=== PATIENT | female | born 1935 | race African-American/Black ===

== ENCOUNTER 2016-07-02 12:37 | Inpatient (IN) ==
[2016-07-02 13:20] LABS: MANUAL DIFF NEEDED? NO
[2016-07-02 13:23] LABS: BASO% 0.1 % (0.0-0.8); EOS% 0.9 % (0.0-10.0); HEMATOCRIT 37.9 % (37.0-47.0); HEMOGLOBIN 13.1 g/dL (12.0-16.0); LYMPH# 1.25 X1000 (1.2-3.4); LYMPH% 11.6 % (20.5-51.1); MCH 29.7 PG (27-31); MCHC 34.6 g/dL (33-37); MCV 85.9 FL (81-99); MONO# 0.46 X1000 (0.11-0.59); MONO% 4.3 % (1.7-9.3); MPV 10.1 FL (7.4-10.4); NEUT% 83.1 % (42.2-75.2); PLT 238 X1000 (130-400); RBC 4.41 XMIL (4.2-5.4)
[2016-07-02 13:23] LABS: URINE CULTURE NEEDED? NO; URINE MICRO REVIEW NEEDED? NO; URINE SOURCE CLEAN CATCH
[2016-07-02 13:26] LABS: BILIRUBIN URINE NEGATIVE (NEGATIVE); BLOOD URINE NEGATIVE (NEGATIVE); COLOR YELLOW; GLUCOSE URINE NEGATIVE (NEGATIVE); LEUKOCYTES URINE NEGATIVE (NEGATIVE); NITRITE URINE NEGATIVE (NEGATIVE); PROTEIN URINE TRACE mg/dL (NEGATIVE); SP GRAVITY URINE 1.014; TURBIDITY URINE CLEAR (CLEAR); UR EPITHELIAL CELLS <10 /HPF (<10); URINE BACTERIA NEGATIVE /HPF; URINE RBC <10 /HPF (<10); URINE WBC <10 /HPF (<10); UROBILINOGEN URINE NORMAL (NORMAL)
[2016-07-02 13:38] LABS: AGAP 13; ALBUMIN 3.8 g/dL (3.5-5.0); ALKALINE PHOSPHATASE 83 U/L (32-104); AMYLASE 54 U/L (20-200); BUN 15 mg/dL (8-22); CHLORIDE 99 mmol/L (98-107); COSMO 279; GOT 13 U/L (10-30); GPT 5 U/L (10-36); LIPASE 20 U/L (13-60); POTASSIUM 3.5 mmol/L (3.5-5.1); SODIUM 137 mmol/L (136-145); TCO2 25 mmol/L (25-35); TOTAL BILIRUBIN 0.66 mg/dL (0.20-1.00); TOTAL PROTEIN 8.1 g/dL (6.3-8.3)
[2016-07-02] MEDS ORDERED: ZOFRAN IV ONE (14:56)
[2016-07-02] MEDS ORDERED: NS 1,000 ML IV ONE (14:56)
--- NOTE | 2016-07-02 16:47 | Diag Imaging Result Doc PS360 ---
EXAM: FLAT/UPRIGHT ABD/1 VIEW CHEST - 07/02/2016 HISTORY: Abd pain TECHNIQUE: Supine and upright abdomen and one view chest COMPARISON: One view chest 04/24/2016 and abdominal series of 06/19/2013 FINDINGS: There is gaseous small bowel distention at the right lower quadrant. There is a moderate amount retained fecal debris in the colon. There are air-fluid levels in the right lower quadrant on the upright view. There is no obvious free air. Upright chest shows normal heart size. There is stable tortuosity of the thoracic aorta. 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 There is no consolidation, pleural effusion, or pneumothorax identified. IMPRESSION: Gaseous small bowel distention at right lower quadrant. Apparent constipation. Correlation with results of subsequent CT scan is recommended. No evidence of acute cardiopulmonary disease. Electronically signed by Barry Sifuentes 07/02/2016 4:45 PM
--- NOTE | 2016-07-02 17:08 | Diag Imaging Result Doc PS360 ---
EXAM: CT ABD/PELVIS W/ IV CONT ONLY - 07/02/2016 HISTORY: Abd pain w/o h/o extensive abd surgeries TECHNIQUE: With intravenous contrast only per request the referring provider. Dose reduction protocol. COMPARISON: Without contrast CT colography of 08/18/2012 FINDINGS: There is been development of a lower anterior abdominal wall hernia at the midline to the right of midline. There is extension of small bowel into the hernia. There is small bowel wall thickening in and near the hernia which may relate to enteritis. There is distention of small bowel, primarily with fluid, in the hernia and in the midline lower abdomen and mid right abdomen. The small bowel distention may relate to acute obstruction from a hernia, enteritis, or possibly nonvisualized adhesion at or near the hernia. There is no abscess identified. There is no free air identified. There is a small broad-based anterior abdominal wall hernia at the midline midabdomen. There is bulging of the anterior margin of the mid transverse colon into this hernia but there is no extension of small bowel into this hernia, this hernia does not obstruct the colon. There are no substantial analysis of the liver, spleen, adrenal glands, or pancreas identified. The history sheet states there is been previous gallbladder surgery but the gallbladder appears be present and is unremarkable. There are small bilateral renal cysts. There is no hydronephrosis. There is no adenopathy identified. IMPRESSION: Lower anterior abdominal wall hernia at the midline and to the right of midline which contains small bowel. Small bowel wall thickening in the vicinity of the hernia which may relate to focal enteritis. Distention of small bowel in the hernia and proximal to the hernia which is suspicious for acute small bowel obstruction. The small bowel obstruction may relate to incarceration of small bowel in the hernia. Other considerations may include focal enteritis and nonvisualized adhesion in the vicinity of a hernia. The possibility of small bowel strangulation at the hernia cannot be entirely excluded. No abscess. No free air. Electronically signed by Barry Sifuentes 07/02/2016 5:05 PM
--- NOTE | 2016-07-02 17:22 | PROVIDER DOCUMENTATION ---
This chart was entered by Sharee Olivera Scribe, acting as scribe for Inga Donald MD. HPI-Abdominal Pain/GI Problem - General Chief Complaint: Abdominal Pain Stated Complaint: nausea/abd pain Time Seen by Provider: 07/02/16 14:36 Allergies/Adverse Reactions: Patient Allergies Allergy/AdvReac Type Severity Reaction Status Date / Time No Known Allergies Allergy Verified 07/02/16 15:40 Home Medications: Home Medication List Medication Instructions Recorded Confirmed Last Taken Type Amlodipine [Norvasc] 10 mg PO DAILY 08/27/12 07/02/16 09/14/14 05:00 History Losartan/Hydrochlorothiazide 1 each PO DAILY 08/27/12 07/02/16 09/14/14 05:00 History [Hyzaar 100/25 Tablet] Omeprazole 40 mg PO DAILY 08/27/12 07/02/16 09/13/14 08:00 History Potassium Chloride [Klor-Con 10] 10 meq PO DAILY 08/27/12 07/02/16 09/13/14 18: 00 History Loratadine [Claritin] 10 mg PO QHS #30 tablet 02/07/16 07/02/16 Unknown Rx Spironolactone [Aldactone] 25 mg PO DAILY #30 tablet 02/07/16 07/02/16 Unknown Rx Glipizide [Glucotrol] 5 mg PO DAILY 07/02/16 07/02/16 Unknown History - History of Present Illness-ABD Nature of Presenting Problems: pt is a 81 yof who came to the ED with a cc of RLQ pain. Pt reports her abdomen hurts her once a month, pt is afraid of having another hernia. Pt reports her abdominal pain is causing N/V. denies fever, chills, and chest pain. Abdominal Pain Onset Location: reports: RLQ Pain Radiation: reports: no radiation Quality of Pain: reports: sharp Severity in ED: reports: mild Onset/Duration: reports: unsure Timing: reports: still present Modifying Factors: improves with: nothing Associated Symptoms: reports: denies symptoms Last BM: 2 days ago Dark Stools Present?: reports: none noticed Rectal Bleeding: reports: none Rectal Pain: reports: none Bruising or Bleeding Gums?: No Similar Symptoms Previously?: No Recently seen or treated by another doctor?: No Review of Systems - Adult - REVIEW OF SYSTEMS - ADULT Constitutional: denies: chills, fever Eyes: reports: no symptoms reported Ears, Nose, Mouth & Throat: reports: no symptoms reported Cardiovascular: reports: no symptoms reported Respiratory: reports: no symptoms reported Gastrointestinal: reports: abdominal pain (RLQ), nausea, vomiting. denies: hematemesis, difficulty swallowing Genitourinary: reports: no symptoms reported Musculoskeletal: denies: joint pain, joint swelling Integumentary: reports: no symptoms reported Neurological: reports: no symptoms reported Psychiatric: reports: no symptoms reported Endocrine: reports: no symptoms reported Hematologic/Lymphatic: reports: no symptoms reported Allergic/Immunologic: reports: no symptoms reported All Other Systems: Reviewed and Negative Past History - Adult - PAST MEDICAL HISTORY-ADULT Review of Records: reports: Nursing Assessment Review Major Childhood Illnesses: reports: denies history Cardiovascular: reports: CHF, HTN Respiratory: reports: asthma, COPD Gastrointestinal: reports: GERD Obstetrical/Gynecological: reports: denies history Genitourinary: reports: denies history Musculoskeletal: reports: denies history Neurological: reports: denies history Endocrine/Immune: reports: Diabetes Other Conditions: reports: denies history - PRIOR SURGERIES/PROCEDURES Surgical/Procedure History: reports: appendectomy, cholecystectomy, hysterectomy , other (colon ) - IMMUNIZATION STATUS Childhood Immunizations: See Nurse Assessment Flu Vaccine: See Nurse Assessment - FAMILY HISTORY Family History: reviewed, not pertinent Physical Exam-General - PHYSICAL EXAM-ADULT Initial Vital Signs Reviewed: Yes - CONSTITUTIONAL General Appearance: appears well, alert, no apparent distress - EYES Eyes: PERRL/EOMI, pink conjunctivae - HEAD, EARS, NOSE, MOUTH & THROAT HENMT: normocephalic/atraumatic, moist mucous membranes - NECK Neck: non-tender - RESPIRATORY Respiratory: chest non-tender, lungs clear, normal breath sounds - CARDIOVASCULAR Cardiovascular: normal peripheral pulses, regular rate, rhythm - GASTROINTESTINAL (ABDOMEN) Abdominal Exam: normal bowel sounds, non tender, soft - MUSCULOSKELETAL Back Exam: normal inspection, no CVA tenderness Extremity: normal range of motion, non-tender - SKIN Integumentary: normal color, normal turgor - NEUROLOGIC Neurologic: grossly normal - PSYCHIATRIC Psych/Mental Status: normal mood/affect, normal thought content, normal thought process, oriented x 3 Progress - PLAN OF CARE/RESULTS Progress/Plan/Lab Results: Vital Signs - 8 hr 07/02/16 12:58 Temperature 97.6 F Pulse Rate 74 Respiratory Rate 18 Blood Pressure 147/76 O2 Sat by Pulse Oximetry 98 Laboratory Results - last 24 hr 07/02/16 07/02/16 07/02/16 13:10 13:10 13:18 WBC 10.81 H RBC 4.41 Hgb 13.1 Hct 37.9 MCV 85.9 MCH 29.7 MCHC 34.6 RDW Std Deviation 12.3 Plt Count 238 MPV 10.1 Immature Gran % (Auto) 0.0 Neut % (Auto) 83.1 H Lymph % (Auto) 11.6 L [place] % (Auto) 4.3 Eos % (Auto) 0.9 Baso % (Auto) 0.1 Immature Gran # (Auto) 0.00 Neut # (Auto) 8.99 H Lymph # (Auto) 1.25 [place] # (Auto) 0.46 Eos # (Auto) 0.10 Baso # (Auto) 0.01 Sodium 137 Potassium 3.5 Chloride 99 Carbon Dioxide 25 Anion Gap 13 BUN 15 Creatinine 0.8 Estimated GFR/1.73 m2 > 60 BUN/Creatinine Ratio 19 Glucose 177 H Calculated Osmolality 279 Calcium 9.0 Total Bilirubin 0.66 AST 13 ALT 5 L Alkaline Phosphatase 83 Total Protein 8.1 Albumin 3.8 Globulin 4.3 Albumin/Globulin Ratio 0.9 Amylase 54 Lipase 20 Urine Source CLEAN CATCH Urine Color YELLOW Urine Turbidity CLEAR Urine pH 6.0 Ur Specific Home 1.014 Urine Protein TRACE A Ur Glucose (Stick) NEGATIVE Ur Ketones (Stick) TRACE A Urine Blood NEGATIVE Urine Nitrite NEGATIVE Urine Bilirubin NEGATIVE Urobilinogen Dipstick NORMAL Urine Leukocytes NEGATIVE Urine WBC (Auto) <10 Urine RBC (Auto) <10 U Epithel Cells (Auto) <10 Urine Bacteria (Auto) NEGATIVE Orders Category Date Time Status AMYLASE [CHEM] Stat Lab 07/02/16 13:10 Completed CBC WITH ELECTRONIC DIFF [HEME] Stat Lab 07/02/16 13:10 Completed COMPREHENSIVE METABOLIC PANEL [CHEM] Stat Lab 07/02/16 13:10 Completed LIPASE [CHEM] Stat Lab 07/02/16 13:10 Completed UA Reflex [URINALYSIS W/POSS RFLX CULT] [URINALYSIS] Lab 07/02/16 13:18 Completed Stat Result Diagrams: 07/02/16 13:10 05/23/17 13:10 - CT/MRI 1 CT Study: Abdomen (CT A+P - small bowel incaration in abd wall hernia vs. enteritis.) - CONSULTS/PCP/HOSPITALIST Notification #1 *Consult/PCP/Hospitalist*: Dr. Barrios Time Discussed: 17:20 Reason/Comments: Admit Consult Disposition: Admit Departure - Departure Time of Disposition Decision: 17:21 DIAGNOSIS: Hernia of anterior abdominal wall Disposition: ADMITTED INPATIENT 09 Certified Medical Emergency: Emergent Condition: Stable Referrals and Follow-Ups: Barry Kaplan MD [Primary Care Provider] - - Critical Care Note This patient required my direct & personal management of CC.: No This chart was documented by the indicated scribe, (Sharee Olivera Scribe) and accurately reflects the services I performed and decisions made by me, Inga Donald MD, as attested by the provider's signature.
[2016-07-02] MEDS ORDERED: ZOFRAN IV PRN ×2 (19:11→22:10)
[2016-07-02] MEDS ORDERED: NS 1,000 ML IV SCH (19:11)
[2016-07-02] MEDS ORDERED: MORPHINE IV PRN ×2 (19:11→22:10)
--- NOTE | 2016-07-02 19:57 | HISTORY AND PHYSICAL ---
CHIEF COMPLAINT: Abdominal pain. HISTORY OF PRESENT ILLNESS: An 81-year-old female with a 1-day history of mid to lower abdominal pain, especially in the right lower abdomen with associated bulging in this area and nausea and vomiting. She has noticed similar type symptoms about once a month for the last 5 or 6 months. She denies any exacerbating or relieving factors. At this time she says her pain has significantly improved and she is not nauseated any more. Her last bowel movement was a couple of days ago. She has passed some gas. PAST MEDICAL HISTORY: 1. Type 2 diabetes with diet control. 2. Hypertension. 3. Chronic obstructive pulmonary disorder. 4. Gastroesophageal reflux disease. 5. History of uterine cancer. 6. Hepatitis C, supposedly in remission. 7. History of diverticulitis. PAST SURGICAL HISTORY: Hysterectomy. Spine fusion. Colon resection for diverticulitis with temporary colostomy and subsequent reversal. Incisional hernia repair without mesh at the time of the colostomy reversal. ALLERGIES: No known drug allergies. FAMILY HISTORY: Reviewed and noncontributory. SOCIAL HISTORY: She denies tobacco, alcohol or illicit drug use. HOME MEDICATIONS: Klor-Con. Hyzaar. Norvasc. Omeprazole. Claritin. Aldactone. Glucotrol. REVIEW OF SYSTEMS: Ten systems reviewed and negative except as noted above. PHYSICAL EXAMINATION: VITAL SIGNS: Temperature 97.6 degrees, pulse 74, respirations 18, blood pressure 147/76, O2 saturation 98%. GENERAL: She is a well-developed, well-nourished female in no distress who looks stated age. HEENT: Normocephalic, atraumatic. Extraocular muscles intact. Pupils equal, round, reactive to light. Sclerae anicteric. Moist mucous membranes. Hearing grossly normal. No oral lesions. NECK: Supple. No thyromegaly. CARDIOVASCULAR: Regular rate and rhythm. RESPIRATORY: No work of breathing. GI: Soft, nondistended. No organomegaly or mass. She does have a reducible hernia in her lower midline, just to the right of midline. She is very mildly tender in her mid to right lower abdomen. No rebound or guarding. She does have bowel sounds. EXTREMITIES: No clubbing, cyanosis, or edema. SKIN: Warm and dry. No rash. MUSCULOSKELETAL: Moves all extremities equally and well. LABORATORY: White blood cell count 10.8, hemoglobin 13, hematocrit 37.9, platelet count 238,000. Complete metabolic profile reviewed and notable for glucose of 177, amylase and lipase are normal. Urinalysis is unremarkable. IMAGING: An abdominal x-ray today shows gaseous small bowel distention of the right lower quadrant with air fluid levels. An abdominal and pelvis CT scan today shows a lower anterior abdominal wall hernia at the midline and right of midline which contains small bowel with adjacent thickening of the small bowel and distention of the small bowel suspicious for obstruction and possible incarceration. ASSESSMENT AND PLAN: This is an 81-year-old female with small-bowel obstruction secondary to a recurrent incisional hernia. At this time, it appears to be reducible. She does not have an acute abdomen, but I do think she is repair this admission. I have recommended her observation tonight and an open repair tomorrow and planned mesh placement. We discussed the risks and benefits, including bleeding, infection, injury to the intestines, recurrent hernia, and other perioperative cardiopulmonary and vascular complications and other imponderables. She understands and agrees to proceed. cc: Alonso Andrew MD
[2016-07-03] MEDS: CLARITIN PO SCH ×2 (04:13→21:24)
[2016-07-03 05:43] LABS: HEMATOCRIT 35.7 % (37.0-47.0); HEMOGLOBIN 11.8 g/dL (12.0-16.0); MCH 29.7 PG (27-31); MCHC 33.1 g/dL (33-37); MCV 89.9 FL (81-99); RBC 3.97 XMIL (4.2-5.4)
[2016-07-03 05:50] LABS: INR 1.05; PROTIME 11.1 Seconds (9.2-11.7)
[2016-07-03 06:00] LABS: PTT 19.7 Seconds (22.0-36.0)
[2016-07-03 06:03] LABS: AGAP 15; BUN 14 mg/dL (8-22); CALCIUM 8.3 mg/dL (8.8-10.2); CHLORIDE 105 mmol/L (98-107); COSMO 285; POTASSIUM 3.3 mmol/L (3.5-5.1); SODIUM 143 mmol/L (136-145); TCO2 23 mmol/L (25-35)
--- NOTE | 2016-07-03 07:18 | EKG Report ---
Test Performed on : 07/03/2016 06:58:23 AM Test Reason : pre op Blood Pressure : / mmHG Vent. Rate : 057 BPM Atrial Rate : 057 BPM P-R Int : 140 ms QRS Dur : 078 ms QT Int : 468 ms P-R-T Axes : 038 003 -36 degrees QTc Int : 455 ms Sinus bradycardia. Voltage criteria for left ventricular hypertrophy T wave abnormality, consider lateral ischemia Abnormal ECG When compared with ECG of 03-MAR-2013 10:04, No significant change was found Confirmed by Wu CONSTANTINO, Sandeep Min ([id number]) on 07/03/2016 3:56:39 PM
[2016-07-03] MEDS ORDERED: PRILOSEC PO SCH (09:00)
[2016-07-03] MEDS: ALDACTONE PO SCH (12:01)
[2016-07-03] MEDS: NORVASC PO SCH (12:02)
[2016-07-03] MEDS ORDERED: KEFZOL 1 GM/D5W 1 GM/50 ML IVPB IV ONE ×2 (14:00)
[2016-07-03] MEDS ORDERED: PEPCID ONE (15:10)
[2016-07-03] MEDS ORDERED: REGLAN ONE (15:10)
[2016-07-03] MEDS ORDERED: KEFZOL 1 GM/D5W 0 GM/0 ML IVPB ONE (15:10)
[2016-07-03] MEDS ORDERED: MARCAINE 0.25% PF/EPI 1:200,000 ONE (15:31)
[2016-07-03 16:15] LABS: URINE MICRO REVIEW NEEDED? NO; URINE SOURCE CATH
[2016-07-03 16:24] LABS: BILIRUBIN URINE NEGATIVE (NEGATIVE); BLOOD URINE NEGATIVE (NEGATIVE); COLOR YELLOW; GLUCOSE URINE NEGATIVE (NEGATIVE); LEUKOCYTES URINE NEGATIVE (NEGATIVE); NITRITE URINE NEGATIVE (NEGATIVE); PH URINE 5.5; PROTEIN URINE NEGATIVE (NEGATIVE); SP GRAVITY URINE 1.017; TURBIDITY URINE CLEAR (CLEAR); UR EPITHELIAL CELLS <10 /HPF (<10); URINE BACTERIA NEGATIVE /HPF; URINE RBC <10 /HPF (<10); URINE WBC <10 /HPF (<10); UROBILINOGEN URINE NORMAL (NORMAL)
[2016-07-03] MEDS: NS 1,000 ML IV SCH ×4 (17:04→21:23)
[2016-07-03] MEDS ORDERED: FENTANYL ONE (17:20)
[2016-07-03] MEDS ORDERED: DIPRIVAN 1% ONE (17:20)
[2016-07-03] MEDS: MORPHINE ONE ×3 (17:44→17:58)
--- NOTE | 2016-07-03 17:59 | OPERATIVE NOTE ---
PROCEDURE DATE: 07/03/2016 PREOPERATIVE DIAGNOSES: 1. Recurrent incisional hernia. 2. Partial small bowel obstruction. POSTOPERATIVE DIAGNOSES: 1. Recurrent incisional hernia. 2. Partial small bowel obstruction. PROCEDURE: Open repair of recurrent incisional hernia. SURGEON: Alonso Andrew. CUT OFF SAWYER: George Evans. ANESTHESIA: General. ESTIMATED BLOOD LOSS: 20 mL. COMPLICATIONS: None apparent. SPECIMENS: Hernia sac. FINDINGS: She had an approximately 5 cm hernia in the lower midline incision with reducible small bowel. The bowel did not appear to be ischemic. It also appeared that the bowel obstruction was resolving. The caliber of bowel appeared to be of approaching normal size. TECHNIQUE: The patient was brought to the operating room and placed supine on the table. General anesthesia was induced. She was prepped and draped in a sterile fashion. Her incision was opened sharply with a knife from the umbilicus down to the symphysis pubis. The subcutaneous tissue was divided sharply with a knife down to the hernia sac. The edges of the fascial defect were delineated by clearing the overlying fat with cautery. The hernia sac was then opened between hemostats with scissors and the hernia sac was then excised with cautery protecting the underlying bowel. The bowel appeared to be healthy and viable without any ischemic changes and the caliber and thickness of the bowel appeared to be resolving back to a normal caliber. I then repaired the hernia with an underlay dual-sided mesh. It was anchored to the fascia with interrupted horizontal mattress 0 Tycron sutures at 12, 6, 3, and 9 o'clock, and then one in between each of these quadrants. The fascia was closed over the mesh without tension with 3 interrupted figure-of- eight sutures. I irrigated out the subcutaneous tissues. There were no signs of any bleeding. The Monica's fascia was closed with interrupted 3-0 Polysorb. The skin was closed with skin clips. Dr. Evans was present and helpful in dissecting out the hernia sac, exposing the edges of the fascia for me, and safely retracting the bowel out of the way as we sewed the mesh to the fascia. cc: Alonso Andrew MD
[2016-07-04] MEDS: NORCO-7.5 PO PRN ×2 (04:15→19:34)
[2016-07-04] MEDS: PRILOSEC PO SCH ×3 (04:16→08:41)
[2016-07-04] MEDS: NS 1,000 ML IV SCH (05:59)
[2016-07-04] MEDS ORDERED: ZEMURON ONE (08:25)
[2016-07-04] MEDS ORDERED: ROBINUL ONE (08:25)
[2016-07-04] MEDS ORDERED: NEOSTIGMINE ONE (08:25)
[2016-07-04] MEDS ORDERED: LR 2,000 ML ONE (08:25)
[2016-07-04] MEDS ORDERED: QUELICIN (DOSE) ONE (08:25)
[2016-07-04] MEDS ORDERED: ZOFRAN ONE (08:25)
[2016-07-04] MEDS ORDERED: XYLOCAINE-MPF 2% ONE (08:25)
[2016-07-04] MEDS: NORVASC PO SCH (08:42)
[2016-07-04] MEDS: ALDACTONE PO SCH (08:42)
[2016-07-04] MEDS: PERIDEX MT SCH ×2 (08:42→21:54)
[2016-07-04] MEDS ORDERED: NS 1,000 ML IV SCH (12:02)
--- NOTE | 2016-07-04 12:24 | PROGRESS NOTE ---
DATE: 07/04/2016 SUBJECTIVE: The patient is doing okay. She has mild to moderate pain around her incision. No nausea or vomiting. She is tolerating clear liquids. She has not passed any gas yet. OBJECTIVE: Vital Signs: She is afebrile. Vital signs are stable. General: She is alert and oriented x4. In no acute distress. Cardiovascular: Regular rate and rhythm. Respiratory: No work of breathing. Gastrointestinal: Soft and nondistended, appropriately tender. Her dressing is clean and dry. She does have good bowel sounds. ASSESSMENT AND PLAN: An 81-year-old female, postoperative day 1 open repair of recurrent incisional hernia. She also had a small-bowel obstruction on admission. I believe this is resolving. We will keep her another night in anticipation of her having better bowel function and better pain control, and she potentially could go home tomorrow. cc: Alonso Andrew MD
[2016-07-04] MEDS: CLARITIN PO SCH (21:55)
[2016-07-05] MEDS: PRILOSEC PO SCH ×2 (05:40→06:40)
[2016-07-05] MEDS: PERIDEX MT SCH ×2 (09:07→20:55)
[2016-07-05] MEDS: ALDACTONE PO SCH (09:09)
[2016-07-05] MEDS: NORVASC PO SCH (09:09)
[2016-07-05] MEDS ORDERED: DULCOLAX PR ONE ×2 (10:22→16:30)
--- NOTE | 2016-07-05 10:40 | PROGRESS NOTE ---
DATE: 07/05/2016 SUBJECTIVE: The patient denies severe pain but she continues to have some moderate lower abdominal incisional pain. She is tolerating clear liquids. She has not passed any gas yet. She is able to walk to the bathroom. She also complains of some fever. OBJECTIVE: Vital Signs: Her max temperature was a 100.6 degrees yesterday afternoon. This morning, it is 99.7 degrees. Her vital signs are stable. General: She is alert and oriented x4. No acute distress. CV: Regular rate and rhythm. Respiratory: No work of breathing. GI: Soft, nondistended. A few bowel sounds are heard. Her incision is clean, dry, and intact. There is appropriate tenderness. ASSESSMENT/PLAN: An 81-year-old female, status post recurrent incisional hernia repair. She also has a resolving small-bowel obstruction and low-grade postop fever. I suspect her fever is due to atelectasis. I think 1 more night of observation is warranted. I have encouraged more ambulation by her. We will advance her to a soft diet and hopefully by tomorrow her fever will have resolved and she will be passing gas and be ready for discharge. cc: Alonso Andrew MD
[2016-07-05] MEDS: COLACE PO SCH ×2 (17:43→20:53)
[2016-07-05] MEDS: GLUCOTROL PO SCH (20:50)
[2016-07-05] MEDS: CLARITIN PO SCH (20:52)
[2016-07-05] MEDS: TYLENOL PO PRN (20:52)
[2016-07-05] MEDS ORDERED: GLUCOTROL PO SCH (21:00)
[2016-07-06] MEDS: PRILOSEC PO SCH ×2 (06:33→07:43)
[2016-07-06] MEDS ORDERED: MILK OF MAGNESIA PO ONE (07:34)
[2016-07-06] MEDS: GLUCOTROL PO SCH (10:05)
[2016-07-06] MEDS: ALDACTONE PO SCH (10:05)
[2016-07-06] MEDS: NORVASC PO SCH (10:05)
[2016-07-06] MEDS: COLACE PO SCH ×2 (10:05→21:37)
[2016-07-06] MEDS: PERIDEX MT SCH ×2 (10:06→21:37)
[2016-07-06] MEDS ORDERED: DULCOLAX PR ONE (19:44)
[2016-07-06] MEDS: CLARITIN PO SCH (21:37)
[2016-07-06] MEDS: TYLENOL PO PRN (21:40)
[2016-07-07 04:13] VITALS: BP 145/68
[2016-07-07] MEDS: PRILOSEC PO SCH (07:35)
[2016-07-07] MEDS: NORVASC PO SCH (09:31)
[2016-07-07] MEDS: COLACE PO SCH (09:31)
[2016-07-07] MEDS: GLUCOTROL PO SCH (09:32)
[2016-07-07] MEDS: ALDACTONE PO SCH (09:32)
[2016-07-07] MEDS: PERIDEX MT SCH (09:40)
== END 2016-07-07 10:28 | disposition home or self-care (01) ==
LOC: ED 12:37 → 4N 18:58
PROVIDERS: ADMIT Surgery; ATTEND Surgery